=== PATIENT | female | born 1965 | race American Indian/Alaskan Native ===

== ENCOUNTER 2017-10-02 07:38 | Outpatient (CLI) | payer BC ==
--- NOTE | 2017-10-02 09:23 | Magnetic Resonance Report ---
MR LOWER EXTREMITY JOINT LEFT WITHOUT CONTRAST HISTORY: Left knee injury. TECHNIQUE: Multisequence, multiplanar MRI without IV gadolinium. FINDINGS: No comparison. There is a large joint effusion which extends to the suprapatellar bursa. Small ruptured popliteal cyst is identified. The medial meniscus is abnormal. Horizontal cleavage tear is suspected throughout the body and posterior horn. Approximately 8 mm over the posterior horn of the medial meniscus is absent near its posterior insertion site. This presumably represents a complex tear of although surgical changes could be considered. No intra-articular free body is confidently identified. The lateral meniscus is normal. Mild to moderate diffuse cartilage thinning is present which is most pronounced in the medial compartment. There is mild subchondral bone marrow edema in the medial tibial plateau consistent with contusion. 1.1 cm subchondral cyst near the insertion site of the ACL on the proximal tibia. The ACL is intact. There appears to be a small ganglion cyst measuring 8 mm associated with the proximal ACL. No tear is appreciated. The PCL, MCL, LCL complex and extensor complex are within normal limits. IMPRESSION: Complex medial meniscal tear as described. Mild to moderate cartilage thinning. Osteoarthritis. Mild bone contusion involving the medial tibial plateau. Small ganglion cyst associated with the proximal ACL which is probably an incidental finding. Large joint effusion. Ruptured popliteal cyst.
== END 2017-10-02 07:39 | disposition home or self-care (01) ==
LOC: MRI 07:38
PROVIDERS: ATTEND Orthopaedic Surgery Foot and Ankle Surgery
DX: S83.232A Complex tear of medial meniscus, current injury, left knee, initial encounter (principal); M17.12 Unilateral primary osteoarthritis, left knee; M25.862 Other specified joint disorders, left knee; X58.XXXA Exposure to other specified factors, initial encounter; Y93.89 Activity, other specified; Y92.89 Other specified places as the place of occurrence of the external cause; Y99.8 Other external cause status
CPT/HCPCS: 73721